=== PATIENT | female | born 1975 | race Hispanic/Latino ===

== ENCOUNTER 2018-05-07 11:54 | Emergency (ER) | payer MEDICAID, OTHER ==
[2018-05-07 11:55] VITALS: BMI 22.8
[2018-05-07 12:13] VITALS: TEMP 98.3
--- NOTE | 2018-05-07 12:58 | ED PDOC ---
Arrival/HPI - General Chief Complaint: Lower Extremity Problem/Injury Time Seen by Provider: 05/07/18 12:14 Historian: Patient - History of Present Illness Narrative History of Present Illness (Text): 05/07/18 12:46 42yo female with pmhx of Anxiety who present with complaint of left knee/ankle, right shoulder and rib pain s/p trauma. States she fell while going downstairs yesterday and her left leg was stuck in between the stairs. States the pain improved with ice and rest yesterday but she started having sharp pain today after standing for a while at work. States she did not take any medication for the pain. Pain is with weight bearing. Denies LOC, focal weakness, back pain, headache, dizziness, any other complaint. Past Medical History - Provider Review Nursing Documentation Reviewed: Yes - Reproductive Currently : No - Cardiac Hx Cardiac Disorders: No - Pulmonary Hx Respiratory Disorders: Yes Hx Asthma: Yes - Neurological Hx Neurological Disorder: No - HEENT Hx HEENT Disorder: No - Renal Hx Renal Disorder: No - Endocrine/Metabolic Hx Endocrine Disorders: No - Hematological/Oncological Hx Blood Disorders: No - Integumentary Hx Dermatological Disorder: No - Musculoskeletal/Rheumatological Hx Musculoskeletal Disorders: No - Gastrointestinal Hx Gastrointestinal Disorders: No - Genitourinary/Gynecological Hx Genitourinary Disorders: No - Psychiatric Hx Psychophysiologic Disorder: Yes Hx Anxiety: Yes Hx Substance Use: No - Surgical History Hx Gastric Bypass Surgery: Yes Hx Hysterectomy: Yes Family/Social History - Physician Review Nursing Documentation Reviewed: Yes Family/Social History: Unknown Family HX Smoking Status: Never Smoked Hx Alcohol Use: No Hx Substance Use: No Allergies/Home Meds Allergies/Adverse Reactions: Allergies codeine Allergy (Verified 05/07/18 12:07) RASH oxycodone HCl [From Percocet] Allergy (Verified 05/07/18 12:07) RASH Home Medications: Home Meds Medication Instructions Recorded Confirmed Alprazolam [Xanax] 0.5 mg PO HS 04/10/16 05/07/18 Fluticasone/Vilanterol 100/25 1 puff NEB PRN PRN 05/07/18 05/07/18 [Breo Ellipta 100-25 MCG INH] Review of Systems - Physician Review All systems were reviewed & negative as marked: Yes - Review of Systems Constitutional: Normal Eyes: Normal ENT: Normal Respiratory: Normal Cardiovascular: Normal Gastrointestinal: Normal Genitourinary Female: Normal Musculoskeletal: Arthralgias (Left knee/ankle/right shoulder/rib) Skin: Normal Neurological: Normal Endocrine: Normal Hemo/Lymphatic: Normal Psychiatric: Normal Physical Exam Vital Signs Reviewed: Yes Vital Signs Temp Pulse Resp BP Pulse Ox 05/07/18 12:07 98.3 F 82 16 123/84 97 Temperature: Afebrile Blood Pressure: Normal Pulse: Regular Respiratory Rate: Normal Appearance: Positive for: Well-Appearing, Non-Toxic, Comfortable Pain Distress: None Mental Status: Positive for: Alert and Oriented X 3 - Systems Exam Head: Present: Atraumatic, Normocephalic Pupils: Present: PERRL Extroacular Muscles: Present: EOMI Conjunctiva: Present: Normal Mouth: Present: Moist Mucous Membranes Neck: Present: Normal Range of Motion Respiratory/Chest: Present: Clear to Auscultation, Good Air Exchange, Tender to Palpation (Right sided lateral ribs). No: Respiratory Distress, Accessory Muscle Use, Wheezes, Decreased Breath Sounds, Rales, Retracting, Rhonchi Cardiovascular: Present: Regular Rate and Rhythm, Normal S1, S2. No: Murmurs Abdomen: No: Tenderness, Distention, Peritoneal Signs Back: Present: Normal Inspection Upper Extremity: Present: NORMAL PULSES, Tenderness (Right shoulder), Neurovascularly Intact. No: Cyanosis, Edema, Normal ROM (Limited on abduction up to 90degree secondary to pain), Deformity Lower Extremity: Present: Normal Inspection, NORMAL PULSES, Normal ROM (With pain on extension), Tenderness (Left knee/ankle), Neurovascularly Intact. No: Edema, Swelling, Deformity Neurological: Present: GCS=15, CN II-XII Intact, Speech Normal Skin: Present: Warm, Dry, Normal Color. No: Rashes Psychiatric: Present: Alert, Oriented x 3, Normal Insight, Normal Concentration Medical Decision Making ED Course and Treatment: 05/08/18 18:19 PT in ED for stated history. Toradol Left knee/ankle xray - No acute fracture Right shoulder/rib xray - No acute fracture Knee immobilizer and cruthces given Result was DW the pt She was advised to RICE ankle and referred to ortho - RAD Interpretation Radiology Orders: 05/07/18 12:26 KNEE WITH PATELLA LEFT 3 VIEW [RAD] Stat 05/07/18 12:27 ANKLE LEFT 3 VIEWS ROUTINE [RAD] Stat RIBS RIGHT & PA CHEST [RAD] Stat SHOULDER RIGHT [RAD] Stat - Medication Orders Current Medication Orders: Discontinued Medications Ketorolac Tromethamine (Toradol) 60 mg IM STAT STA Stop: 05/07/18 12:29 Disposition/Present on Arrival - Present on Arrival Any Indicators Present on Arrival: No History of DVT/PE: No History of Uncontrolled Diabetes: No Urinary Catheter: No History of Decub. Ulcer: No History Surgical Site Infection Following: None - Disposition Have Diagnosis and Disposition been Completed?: Yes Diagnosis: Knee sprain, Rib pain, Shoulder pain Disposition: HOME/ ROUTINE Disposition Time: 14:50 Patient Plan: Discharge Condition: STABLE Discharge Instructions (ExitCare): Knee Sprain (DC), Shoulder Pain (DC), Chest Pain (ED) Additional Instructions: Follow up with your doctor/orthopedist Return to ED for any new or worsening symptoms Prescriptions: Naproxen [Naprosyn] 500 mg PO BID #20 tablet Referrals: Héctor Cole DO [Staff Provider] - Follow up with primary Forms: [facility] (Turkish), WORK NOTE
[2018-05-07 13:06] VITALS: RESP 18; O2SAT 98
[2018-05-07 15:07] VITALS: BP 118/69; PULSE 75
--- NOTE | 2018-05-07 15:42 | RAD ---
Date of service: 05/07/2018 PROCEDURE: Radiographs of the Right Shoulder HISTORY: Shoulder pain post trauma COMPARISON: No prior. FINDINGS: BONES: Normal. No fracture. JOINTS: Normal. Glenohumeral and acromioclavicular joints preserved. No o significant steoarthritis. SOFT TISSUES: Normal. OTHER FINDINGS: None. IMPRESSION: No evidence of acute displaced fracture
--- NOTE | 2018-05-07 15:43 | RAD ---
Date of service: 05/07/2018 PROCEDURE: Left Ankle Radiographs. HISTORY: Ankle pain s/p trauma COMPARISON: None available. FINDINGS: BONES: No evidence of acute displaced fracture nor dislocation. The osseous structures appear intact. Mild soft tissue swelling over the medial and to a lesser degree lateral malleoli. Small plantar and posterior calcaneal enthesophytes are present JOINTS: Normal. No osteoarthritis. Ankle mortise maintained. Talar dome intact SOFT TISSUES: Normal. OTHER FINDINGS: None. IMPRESSION: No evidence of acute displaced fracture nor dislocation.
--- NOTE | 2018-05-07 15:44 | RAD ---
Date of service: 05/07/2018 PROCEDURE: Left Knee Radiographs. HISTORY: Pain. COMPARISON: None. FINDINGS: BONES: Normal. No fracture. JOINTS: Joint spaces preserved however there is slight spurring of the tibial spines. Note also made of a tiny anterior superior patella enthesophyte. JOINT EFFUSION: None. OTHER FINDINGS: None. IMPRESSION: No acute fractures.
--- NOTE | 2018-05-07 17:30 | RAD ---
Date of service: 05/07/2018 PROCEDURE: Radiographs of the Chest and Right Ribs. HISTORY: rib pain s/p trauma COMPARISON: None available. TECHNIQUE: Frontal radiograph of the chest and multiple oblique radiographs of the right ribs were obtained. FINDINGS: RIGHT RIBS: No fracture or focal lesion visualized. LUNGS: Clear. PLEURA: No pneumothorax or pleural fluid. CARDIOVASCULAR: Normal cardiac size. No pulmonary vascular congestion. No aortic atherosclerotic calcification present OTHER FINDINGS: Note made of chain sutures right upper quadrant of the abdomen.. Clinical correlation with surgical history recommended IMPRESSION: Unremarkable radiographs of the chest and right ribs. No right rib fracture.
== END 2018-05-07 15:30 | disposition home or self-care (01) ==
LOC: ED 11:54
DX: S83.92XA Sprain of unspecified site of left knee, initial encounter (principal); W10.9XXA Fall (on) (from) unspecified stairs and steps, initial encounter; M25.511 Pain in right shoulder; R07.9 Chest pain, unspecified
CPT/HCPCS: 29530; 71101; 73030; 73562; 73610; 81025; 96372; 99284; J1885